=== PATIENT | female | born 1960 | race Caucasian/White ===

== ENCOUNTER 2018-06-25 08:44 | Outpatient (CLI) | payer MEDICARE, MEDICAID, SELFPAY ==
[2018-06-25 09:18] LABS: Abs Immature Grans 0.02 k/cumm (0.0-0.09); Absolute Basophil Count 0.03 k/cumm (0.0-0.2); Absolute Eosinophil Count 0.44 k/cumm (0.0-0.7); Absolute Lymphocyte Count 2.03 k/cumm (1.2-3.4); Absolute Monocyte Count 0.55 k/cumm (0.11-0.7); Absolute Neutrophil Count 5.65 k/cumm (1.2-6.7); Basophils % 0.3; HCT 39.5 % (36.0-46.0); HGB 12.7 g/dL (12.0-15.5); Immature Grans % 0.2; Lymphocytes % 23.3; Mean Corp. HGB Concentration 32.2 g/dL (32.0-36.0); Mean Corpuscular Hemoglobin 25.2 pg (27.0-33.0); Mean Corpuscular Volume 78.4 fL (80-95); Mean Platelet Volume 9.4 fL (8.0-11.0); Monocytes % 6.3; Neutrophils % 64.9; Platelet Count 409 x1000/uL (130-400); RBC 5.04 m/cumm (4.00-5.20); RBC Distribution Width 21.8 % (11.7-14.6); White Blood Cell Count 8.72 k/cumm (4.4-10.8)
[2018-06-25 09:40] LABS: Anisocytosis 2+; Diff Comment RBC Morph Reviewed; Hypochromasia 1+; Microcytosis 1+
[2018-06-25 10:45] LABS: Iron 73 ug/dL (50-175); Total Iron Binding Capacity 334 ug/dL (250-450); Transferrin Sat 22 % (15-50)
[2018-06-25 10:55] LABS: Anion Gap 7.9 mmol/L (3-11); BUN 24 mg/dL (7-18); CO2 28.1 mmol/L (21.0-32.0); CREATININE 1.11 mg/dL (0.55-1.02); Calcium 9.4 mg/dL (8.5-10.1); Chloride 102 mmol/L (98-107); Estimated GFR 50.49 (mL/min/1.73m2); Ferritin 47 ng/mL (8-388); Glucose 125 mg/dL (70-100); Potassium 4.4 mmol/L (3.5-5.1); Sodium 138 mmol/L (136-145)
== END 2018-06-25 09:04 ==
PROVIDERS: PCP Nurse Practitioner Family; Visit Provider Nurse Practitioner Family
DX: I10 Essential (primary) hypertension (principal); D50.9 Iron deficiency anemia, unspecified
CPT/HCPCS: 36415; 80048; 82728; 83540; 83550; 85025

== ENCOUNTER 2018-09-28 14:31 | Outpatient (CLI) | payer MEDICARE, MEDICAID, SELFPAY ==
[2018-09-28 14:56] LABS: Abs Immature Grans 0.02 k/cumm (0.0-0.09); Absolute Basophil Count 0.03 k/cumm (0.0-0.2); Absolute Eosinophil Count 0.18 k/cumm (0.0-0.7); Absolute Lymphocyte Count 2.28 k/cumm (1.2-3.4); Absolute Monocyte Count 0.64 k/cumm (0.11-0.7); Absolute Neutrophil Count 5.98 k/cumm (1.2-6.7); Basophils % 0.3; HCT 38.4 % (36.0-46.0); HGB 12.5 g/dL (12.0-15.5); Immature Grans % 0.2; Mean Corp. HGB Concentration 32.6 g/dL (32.0-36.0); Mean Corpuscular Hemoglobin 27.1 pg (27.0-33.0); Mean Corpuscular Volume 83.3 fL (80-95); Mean Platelet Volume 8.8 fL (8.0-11.0); Neutrophils % 65.5; Platelet Count 399 x1000/uL (130-400); RBC 4.61 m/cumm (4.00-5.20); White Blood Cell Count 9.13 k/cumm (4.4-10.8)
== END 2018-09-28 14:51 ==
PROVIDERS: PCP Nurse Practitioner Family; Visit Provider Nurse Practitioner Family
DX: D50.8 Other iron deficiency anemias (principal)
CPT/HCPCS: 36415; 85025

== ENCOUNTER 2019-07-14 02:11 | Outpatient (CLI) | payer MEDICARE, MEDICAID, SELFPAY ==
[2019-07-14 07:38] LABS: HCT 37.2 % (36.0-46.0); HGB 12.1 g/dL (12.0-15.5); Mean Corp. HGB Concentration 32.5 g/dL (32.0-36.0); Mean Corpuscular Hemoglobin 26.5 pg (27.0-33.0); Mean Corpuscular Volume 81.6 fL (80-95); Mean Platelet Volume 8.8 fL (8.0-11.0); Platelet Count 397 x1000/uL (130-400); RBC 4.56 m/cumm (4.00-5.20); RBC Distribution Width 15.1 % (11.7-14.6); White Blood Cell Count 8.24 k/cumm (4.4-10.8)
[2019-07-14 08:14] LABS: Anion Gap 8.4 mmol/L (3-11); BUN 23 mg/dL (7-18); CO2 26.6 mmol/L (21.0-32.0); Calcium 8.9 mg/dL (8.5-10.1); Chloride 105 mmol/L (98-107); Glucose 114 mg/dL (70-100); Potassium 4.5 mmol/L (3.5-5.1); Sodium 140 mmol/L (136-145)
[2019-07-14 09:14] LABS: Hemoglobin A1C 6.2 % (4.5-6.2)
== END 2019-07-14 02:31 ==
PROVIDERS: PCP Nurse Practitioner Family; Visit Provider Nurse Practitioner Family
DX: I10 Essential (primary) hypertension (principal); R73.01 Impaired fasting glucose; Z86.2 Personal history of diseases of the blood and blood-forming organs and certain disorders involving the immune mechanism
CPT/HCPCS: 36415; 80048; 85027; 83036

== ENCOUNTER 2019-08-31 17:53 | Outpatient (REF) | payer MEDICARE, MEDICAID, SELFPAY ==
--- NOTE | 2019-08-31 14:20 | PAPFT_PTH ---
PATIENT: Sandra Diaz LOC: [facility] U#:[id number] AGE/SX: 59/F ROOM: RE08/31/[address]: Carloz Cho MD : 1960 BED: DIS: 08/31/2019 SPEC #: [id number] RECD: 08/31/19 18:09 STATUS: EMILY REQ #: [id number] LILIA: 08/31/19 14:[address]: Carloz Cho DEPT: [facility] Cytology RECD BY: Misti Vasquez ENTERED: 08/31/19 18:10 SP TYPE: PAPFT OTHR DR: Cathy Daniels APRN Tissues: 1 - CX/ENDOCX FOR PAP SMEARS Procedures: PAP THIN PREP/UVM Screening HPV DNA PROBE Comments: [id number]
== END 2019-08-31 18:13 ==
LOC: LBN 17:53
PROVIDERS: PCP Nurse Practitioner Family; Visit Provider Obstetrics & Gynecology
DX: Z12.4 Encounter for screening for malignant neoplasm of cervix (principal)
CPT/HCPCS: 88142; 87624

== ENCOUNTER 2019-09-08 09:58 | Outpatient (CLI) | payer MEDICARE, MEDICAID, SELFPAY | END 2019-09-08 10:18 | PROVIDERS: PCP Nurse Practitioner Family; Visit Provider Obstetrics & Gynecology | DX: N81.3 Complete uterovaginal prolapse (principal); Z01.812 Encounter for preprocedural laboratory examination | CPT/HCPCS: 36415; 80053; 86850; 86900; 86901; 85025 ==

== ENCOUNTER 2019-09-10 01:50 | Outpatient (CLI) | payer MEDICARE, MEDICAID, SELFPAY ==
--- NOTE | 2019-09-10 09:36 | DI.US_ITS ---
EXAM: US RENAL CLINICAL HISTORY: Preoperative evaluation. N87.442 HX URINARY CALCULI TECHNIQUE: Ultrasound performed using standard protocol. COMPARISON: No prior studies for comparison FINDINGS: Renal ultrasound was performed according to the usual protocol. No prior studies available for avis christopher. There is moderate bilateral hydronephrosis. There is an apparent left midpole calculus measu ring about 11 millimeters in diameter. No other intrarenal calcification seen. The bladder is incom pletely filled and cannot be adequately evaluated. Moderate bilateral hydronephrosis. Left renal mi dpole to lower pole nonobstructing calculus identified.
== END 2019-09-10 02:10 ==
PROVIDERS: PCP Nurse Practitioner Family; Visit Provider Obstetrics & Gynecology
DX: N81.3 Complete uterovaginal prolapse (principal); Z87.442 Personal history of urinary calculi; N13.39 Other hydronephrosis; N20.0 Calculus of kidney
CPT/HCPCS: 76770

== ENCOUNTER 2019-09-15 17:26 | Observation (INO) | payer MEDICARE, MEDICAID, SELFPAY ==
[2019-09-08 11:00] VITALS: BP 150/96; PULSE 108; RESP 18; TEMP 37.1; O2SAT 95
[2019-09-08 11:08] VITALS: BP 150/96; PULSE 108; RESP 18; TEMP 37.1; O2SAT 95
[2019-09-15] VITALS (12 sets, daily range): BP systolic 56–151; BP diastolic 27–107; PULSE 77–103; RESP 17–20; TEMP 36.1–36.6; O2SAT 92–97
[2019-09-15] MEDS: Lactated Ringers 1,000 ML 100 ML IV ×4 (11:05→19:09)
[2019-09-15] MEDS: ceFAZolin 2 GM/50 ML BAG IVPB (13:29)
--- NOTE | 2019-09-15 14:45 | UTER_PTH ---
PATIENT: Sandra Diaz LOC: [id number]#:[id number] AGE/SX: 59/F ROOM: 218 RE09/15/[address]: Carloz Cho MD : 1960 BED: A DIS: 09/16/2019 SPEC #: [id number] RECD: 09/15/19 17:57 STATUS: EMILY REQ #: [id number] LILIA: 09/15/19 14:[address]: Carloz Cho DEPT: Surgical Specimen RECD BY: Misti Vasquez ENTERED: 09/15/19 17:58 SP TYPE: UTER OTHR DR: Cathy Daniels APRN Tissues: 1 - UTERUS W OR W/O OVARIES(NOT TUMOR/PROLAPSE) Procedures: GROSS AND MICRO LEVEL 4 Comments: [id number]
[2019-09-15] MEDS: Normal Saline 20 ML VIAL (15:50)
[2019-09-15] MEDS: Vasopressin 20 UNITS/ML VIAL (15:50)
--- NOTE | 2019-09-15 19:04 | ROE_ITS ---
Date of service: 09/15/19 Time of Service: 19:04 Operative Note Operative Note DATE OF PROCEDURE: 09/15/19 PRE-OP DIAGNOSIS: Complete procidentia POST-OP DIAGNOSIS: same Same PROCEDURE: 1. Total vaginal hysterectomy with bilateral salpingo-oophorectomy 2. Enterocele repair with a modified Carreno's culdoplasty 3. Left uterosacral ligament suspension 4. Posterior colporrhaphy 5. Postoperative cystoscopy SURGEON: Carloz Cho ASSISTING SURGEON: Arlin Lucero EMPLOYMENT APPEALS EXAMINER: Daisy Hernandes ANESTHESIA: GETA ESTIMATED BLOOD LOSS: 350 PATHOLOGY: other (1. Uterus, tubes and ovaries) COMPLICATIONS: None Patient was transported to: PACU Patient's condition: stable Findings: 1. Complete procidentia 2. Normal-appearing uterus tubes and ovaries 3. Postoperative cystoscopy showed numerous bladder diverticula but otherwise normal. Procedure Description: The patient was taken to the operating room and after adequate general anesthesia was obtained the patient was placed in lithotomy position. The patient was prepped and draped in usual sterile manner. A Saavedra catheter was placed in the bladder draining clear urine. As mentioned above complete procidentia was noted. Vaginal mucosa surrounding the cervix was infiltrated with vasopressin solution. A circumferential incision around the cervix was made with a #10 scalpel. Blunt and sharp dissection was used to develop the anterior and posterior planes. The vaginal mucosa was thick and inf lamed. Cul-de-sac was identified and entered sharply with Pena scissors. A right ankle retractor was used to reflect the rectum posteriorly. The uterosacral ligaments were crossclamped bilaterally with Zeppelin clamps, transected with Pena scissors, and suture ligated with a Sriram stitch of 0 Vicryl. I did have some difficulty identifying the anterior cul-de-sac initially but was able to enter the anterior cul-de-sac safely once the uterosacral ligaments were released. The bladder was reflected anteriorly with a right angle retractor as well. The uterine arteries were crossclamped bilat erally with Zeppelin clamps, transected with Pena scissors and suture-ligated with a Lina stitch of 0 Vicryl. Two additional pedicles completed dissection to the level of the utero-ovarian ligament. The uterus was removed from the abdomen. Each pedicle was suture-ligated with a transfixed suture of 0 Vicryl. The right tube and ovary were identified. The infundibulopelvic ligament was crossclamped with a Zeppelin clamp and transected with Pena scissors. It was then suture-ligated with a transfix suture of 0 Vicryl. A similar procedure was carried out on the opposite side. It was a very large enterocele defect. The suture tags on the uterosacral ligaments were held and used as a guide post. The enterocele sac with a portion of vaginal mucosa was excised. A modified Carreno's culdoplasty incorporating remnants of the uterosacral ligaments with the posterior peritoneum was used to close the defect. A V-shaped section of vaginal mucosa had been excised and closed with interrupted sutures of 0 Vicryl in a through and through fashion. Excellent hemostasis was noted. The suture tags which had been held on the uterosacral ligaments were incorporated into the vaginal angles with use of a free needle. The median defect in the vaginal cuff was closed with interrupted vertical mattress sutures of 0 Vicryl. The vaginal cuff was reduced caudally. Attention was then turned to the rectocele defect. The mucosa at the introitus was grasped with 2 Allis forceps. A V-shaped incision was made with a #10 scalpel over the perineal body. Dissection was carried in the midline along the posterior vaginal mucosa with Metzenbaum scissors. This was taken to the level of the enterocele defect. The vaginal mucosa was dissected laterally with both blunt and sharp dissection freeing it from the underlying rectocele defect. Dissection was carried to the ischio rectal fossa on the left side and the ischial spine was identified. The supraspinous ligament was also identified. With the use of a Capio needle petroleum transport driver two sutures of 0 Vicryl were placed approximately 1 cm medial from the ischial spine into the sacrospinous ligament. A point high on the vaginal mucosa near the vaginal cuff was identified and with the use of a free needle the sutures were passed through and through the vaginal mucosa and with a roshni stitch the vaginal apex was elevated. Attention was then turned to the right sacrospinous ligament. On this side it was very difficult to identify the point of the ischial spine despite adequate dissection into the ischio rectal fossa. The sacral spinous ligament could not be positively identified on the side and the decision was made to proceed only with the unilateral left-sided sacrospinous ligament fixation. The rectocele defect was identified and was reduced initially with a pursestring suture of 2-0 Vicryl. The endopelvic fascia was identified and the defect closed with interrupted sutures of 0 Vicryl. The vaginal mucosa was trimmed and closed with interrupted sutures of 0 Vicryl. The bulbocavernosus muscles were reapproximated in the midline with a deep stitch of 0 Vicryl. Excellent hemostasis was noted. The Saavedra catheter was removed. The 30 degree 5 mm cystoscope with normal saline distention media was advanced through the urethra. A 5 mL's of indigocarmine was given intravenously. The patient was noted to have some degre e of renal insufficiency at baseline. The bladder had a significant amount of debris with cloudy urine. The bladder wall was thoroughly inspected and there was no evidence of trauma. There was efflux of urine from both UOs but no strong stream of indigocarmine. This did take some time to present and urine was noted to be blue-colored in recovery. Numerous bladder diverticuli were noted. The procedure was concluded at this point. Vaginal packing soaked with Premarin was placed in the vagina. Sponge, lap, needle and instrument counts were correct at the conclusion of the procedure. The patient was transferred to PACU in stable condition.
--- NOTE | 2019-09-15 19:25 | NUR.NOTE ---
Nursing Note: At 108 hrs., pt brought to RM 218, post op total vaginal hysterectomy. Alert and oriented x 3. , Denied of post op pain. Saavedra output received in blue colored due to indigo camine used in surgery. No signs of bleeding noted. Pt having dinner at this time. Vital signs monitored. Call lights within reach.
[2019-09-15] MEDS: ACETAMINOPHEN 1,000 MG/100 ML BTL 400 MG (20:00)
[2019-09-15] MEDS: Docusate Sodium 100 MG CAP PO (20:42)
[2019-09-16 00:04] VITALS: BP 93/63; PULSE 91; RESP 17; TEMP 37; O2SAT 93
[2019-09-16 04:00] VITALS: BP 99/59; PULSE 95; RESP 20; TEMP 37; O2SAT 93
[2019-09-16] MEDS: Lactated Ringers 1,000 ML 100 ML IV (04:21)
[2019-09-16 07:05] LABS: Abs Immature Grans 0.03 k/cumm (0.0-0.09); Absolute Neutrophil Count 12.61 k/cumm (1.2-6.7); Basophils % 0.1; HCT 27.6 % (36.0-46.0); HGB 8.7 g/dL (12.0-15.5); Immature Grans % 0.2; Mean Corp. HGB Concentration 31.5 g/dL (32.0-36.0); Mean Corpuscular Hemoglobin 25.7 pg (27.0-33.0); Mean Corpuscular Volume 81.7 fL (80-95); Mean Platelet Volume 8.9 fL (8.0-11.0); Monocytes % 6.9; Neutrophils % 81.8; Platelet Count 425 x1000/uL (130-400); RBC 3.38 m/cumm (4.00-5.20); RBC Distribution Width 14.9 % (11.7-14.6); White Blood Cell Count 15.42 k/cumm (4.4-10.8)
[2019-09-16 07:21] LABS: Absolute Basophil Count 0.02 k/cumm (0.0-0.2); Absolute Monocyte Count 1.06 k/cumm (0.11-0.7)
[2019-09-16 07:22] LABS: ALT 13 U/L (14-59); AST 9 U/L (15-37); Albumin 2.5 g/dL (3.4-5.0); Alkaline Phosphatase 42 U/L (46-116); BUN 21 mg/dL (7-18); Bilirubin, Total 0.1 mg/dL (0.2-1.0); CREATININE 0.99 mg/dL (0.55-1.02); Calcium 8.9 mg/dL (8.5-10.1); Chloride 105 mmol/L (98-107); Estimated GFR 57.41 (mL/min/1.73m2); Glucose 138 mg/dL (74-106); Potassium 3.9 mmol/L (3.5-5.1); Sodium 140 mmol/L (136-145); Total Protein 5.9 g/dL (6.4-8.2)
[2019-09-16 07:33] VITALS: BP 107/65; PULSE 99; RESP 17; TEMP 37.2; O2SAT 95
[2019-09-16 07:37] LABS: Diff Comment RBC Morph Reviewed; Hypochromasia 1+; Polychromasia Present
[2019-09-16] MEDS: DULoxetine 20 MG CAP 40 MG PO (08:46)
[2019-09-16] MEDS: Docusate Sodium 100 MG CAP PO (08:46)
[2019-09-16 11:18] VITALS: BP 104/58; PULSE 111; RESP 17; TEMP 36.6; O2SAT 94
== END 2019-09-16 14:32 | disposition home or self-care (01) ==
LOC: MS 18:24
PROVIDERS: Admitting Provider Obstetrics & Gynecology; PCP Nurse Practitioner Family; Visit Provider Obstetrics & Gynecology
PROC: 0UT97ZZ Resection of Uterus, Via Natural or Artificial Opening (ICD-10-PCS; CPT 58260; principal; 2019-09-15 12:00)
PROC: 0UT97ZZ Resection of Uterus, Via Natural or Artificial Opening (ICD-10-PCS; CPT 57260; 2019-09-15 12:00)
DX: N81.3 Complete uterovaginal prolapse (principal); N32.3 Diverticulum of bladder; N84.0 Polyp of corpus uteri; N80.0 Endometriosis of uterus; N72 Inflammatory disease of cervix uteri; K21.9 Gastro-esophageal reflux disease without esophagitis
CPT/HCPCS: 58263; 57250; 36415; 80053; 88305; 85025; 88307; G0378; J0131; J0690; J1100; J2250; J2405; J3010; J3475

== ENCOUNTER 2019-09-30 11:20 | Emergency (ER) | payer MEDICARE, MEDICAID, SELFPAY ==
[2019-09-30 11:29] VITALS: BP 145/89; PULSE 97; RESP 18; TEMP 36.1; O2SAT 97
--- NOTE | 2019-09-30 11:45 | DI.RAD_ITS ---
EXAM: XR ANKLE LT COMPLETE CLINICAL HISTORY: Anterior lateral ankle pain/foot pain TECHNIQUE: COMPARISON: XR FOOT LT COMPLETE from 09/30/2019 FINDINGS: Three views of the ankle and three views of the foot were obtained. The ankle mortise is well mainta ined. There is soft tissue swelling of the ankle. There is cortical irregularity of the lateral asp ect of the calcaneus, possibility of impaction or avulsion fracture is raised. Clinical correlation requested. Otherwise no acute fracture is seen. There are degenerative changes involving the joints of the foot and ankle. IMPRESSION: Question lateral calcaneal impaction and/or avulsion injury. Please correlate clinically. Additiona l evaluation with CT could be obtained if appropriate.
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
== END 2019-09-30 12:20 | disposition home or self-care (01) ==
PROVIDERS: Emergency Provider Physician Assistant; PCP Nurse Practitioner Family
DX: S93.402A Sprain of unspecified ligament of left ankle, initial encounter (principal); X50.9XXA Other and unspecified overexertion or strenuous movements or postures, initial encounter; W10.8XXA Fall (on) (from) other stairs and steps, initial encounter; I10 Essential (primary) hypertension
CPT/HCPCS: 29515; 99284; 73610; 73630; 99283; L1902

== ENCOUNTER 2019-11-17 02:11 | Outpatient (CLI) | payer MEDICARE, MEDICAID, SELFPAY ==
--- NOTE | 2019-11-17 11:47 | DI.MAMMO_ITS ---
EXAM: MG MAMMO SCREENING CLINICAL HISTORY: SCREENING. TECHNIQUE: Bilateral full field digital CC and MLO mammographic images were obtained with 3D tomosyn thesis and utilizing computer aided detection (CAD). COMPARISON: Available for comparison. FINDINGS: Masses/Architectural Distortion: There is an asymmetric density in the upper central left breast seen on the mediolateral oblique view. Microcalcifications: No suspicious pleomorphic-type are seen. Skin Thickening/Nipple Retraction: None. IMPRESSION: 1. Asymmetric density in the upper central left breast on the mediolateral oblique view. 2. Spot compression views requested for further evaluation. Ultrasound may be indicated at that time . BI-RADS Cat 0 - Assessment Incomplete: Need additional imaging evaluation Breast Density - Category B - Scattered areas of fibroglandular density A negative radiographic report should not delay biopsy if a dominant or clinically suspicious mass is present. Up to ten percent of cancers are not identified on mammography. A negative report may reinforce clinical impression. Adenosis and dense breasts may obscure an underlying neoplasm. False positive reports average 6 to 10%. Patient will receive a letter notifying them of these results.
== END 2019-11-17 02:31 ==
PROVIDERS: PCP Nurse Practitioner Family; Visit Provider Nurse Practitioner Family
DX: Z12.31 Encounter for screening mammogram for malignant neoplasm of breast (principal); R92.8 Other abnormal and inconclusive findings on diagnostic imaging of breast
CPT/HCPCS: 77063; 77067

== ENCOUNTER 2019-11-22 01:10 | Outpatient (CLI) | payer MEDICARE, MEDICAID, SELFPAY ==
--- NOTE | 2019-11-22 14:40 | DI.MAMMO_ITS ---
EXAM: MG MAMMO SCREEN CALL BACK UNI MG MAMMO SCREEN CALL BACK UNI CLINICAL HISTORY: F/U MAMMO, ASYMMETRIC DENSITY UPPER OUTER LT BREAST TECHNIQUE: Spot-compression MLO view with tomography of the central portion the left breast was per formed. COMPARISON: 2012 and 2016. FINDINGS: The exam of 17 November 2019 question a central asymmetry on the MLO view of the left breast. No per sistent abnormality is seen on the additional view performed. The findings are consistent with overl gregory fibroglandular tissue. IMPRESSION: BI-RADS category 1, negative. Yearly screening mammography is recommended.
== END 2019-11-22 01:30 ==
PROVIDERS: PCP Nurse Practitioner Family; Visit Provider Nurse Practitioner Family
DX: Z12.31 Encounter for screening mammogram for malignant neoplasm of breast (principal); R92.8 Other abnormal and inconclusive findings on diagnostic imaging of breast; N64.59 Other signs and symptoms in breast
CPT/HCPCS: 77063; 77067

== ENCOUNTER 2021-06-28 02:56 | Outpatient (CLI) | payer MEDICARE, MEDICAID, SELFPAY ==
[2021-06-28 09:56] LABS: Abs Immature Grans 0.02 10^3/uL (0.0-0.06); Absolute Basophil Count 0.03 10^3/uL (0.0-0.2); Absolute Eosinophil Count 0.23 10^3/uL (0.0-0.7); Absolute Lymphocyte Count 1.92 10^3/uL (1.2-3.4); Absolute Monocyte Count 0.55 10^3/uL (0.1-0.8); Absolute Neutrophil Count 5.01 10^3/uL (1.2-6.7); Basophils % 0.4; HCT 37.9 % (36.0-46.0); HGB 11.4 g/dL (11.2-15.7); Immature Grans % 0.3; Lymphocytes % 24.7; MCH 24.9 pg (27.0-33.0); MCHC 30.1 % (32.0-36.0); MCV 82.8 fL (80-95); MPV 9.2 fL (8.0-11.0); Monocytes % 7.1; Neutrophils % 64.5; Nucleated RBC 0 %; Platelet Count 334 10^3/uL (130-400); RBC 4.58 10^6/uL (3.93-5.22); RDW 15.5 % (11.7-14.6); WBC 7.76 10^3/uL (4.4-10.8)
[2021-06-28 10:49] LABS: ALT 25 U/L (14-59); AST 8 U/L (15-37); Albumin 3.7 g/dL (3.4-5.0); Alkaline Phosphatase 60 U/L (46-116); Anion Gap 9.3 mmol/L (3-11); BUN 21 mg/dL (7-18); Bilirubin, Total 0.4 mg/dL (0.2-1.0); CO2 29.7 mmol/L (21.0-32.0); CREATININE 1.1 mg/dL (0.55-1.02); Calcium 9.3 mg/dL (8.5-10.1); Chloride 106 mmol/L (98-107); Glucose 98 mg/dL (74-106); Potassium 4.2 mmol/L (3.5-5.1); Sodium 145 mmol/L (136-145); Total Protein 7.2 g/dL (6.4-8.2)
[2021-06-29 12:14] LABS: Hepatitis C Ab w Rflx HCV PCR Negative (Negative)
== END 2021-06-28 02:57 | disposition home or self-care (01) ==
LOC: LBO 02:56
PROVIDERS: PCP Nurse Practitioner Family; Visit Provider Nurse Practitioner Family
DX: I10 Essential (primary) hypertension (principal); Z11.59 Encounter for screening for other viral diseases
CPT/HCPCS: 36415; 80053; 86803; 85025

== ENCOUNTER 2021-12-08 10:38 | Emergency (ER) | payer MEDICARE, MEDICAID, SELFPAY ==
[2021-12-08 10:43] VITALS: BP 175/95; PULSE 111; RESP 14; TEMP 36.3; O2SAT 97
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
[2021-12-08 12:08] LABS: Abs Immature Grans 0.02 10^3/uL (0.0-0.06); Absolute Basophil Count 0.04 10^3/uL (0.0-0.2); Absolute Eosinophil Count 0.15 10^3/uL (0.0-0.7); Absolute Monocyte Count 0.62 10^3/uL (0.1-0.8); Absolute Neutrophil Count 5.82 10^3/uL (1.2-6.7); Basophils % 0.5; Eosinophils % 1.8; HCT 36.7 % (36.0-46.0); HGB 11.6 g/dL (11.2-15.7); Immature Grans % 0.2; Lymphocytes % 21.3; MCH 25.9 pg (27.0-33.0); MCHC 31.6 % (32.0-36.0); MCV 81.9 fL (80-95); MPV 8.9 fL (8.0-11.0); Monocytes % 7.3; Neutrophils % 68.9; Nucleated RBC 0 %; Platelet Count 333 10^3/uL (130-400); RBC 4.48 10^6/uL (3.93-5.22); RDW 14.4 % (11.7-14.6); RDW-SD 42.6 fL; WBC 8.45 10^3/uL (4.4-10.8)
[2021-12-08 12:28] LABS: ALT 20 U/L (14-59); AST 12 U/L (15-37); Albumin 3.9 g/dL (3.4-5.0); Alkaline Phosphatase 58 U/L (46-116); BUN 29 mg/dL (7-18); Bilirubin, Total 0.3 mg/dL (0.2-1.0); CREATININE 1.1 mg/dL (0.55-1.02); Calcium 9.3 mg/dL (8.5-10.1); Chloride 103 mmol/L (98-107); Glucose 109 mg/dL (74-106); Potassium 4.3 mmol/L (3.5-5.1); Sodium 139 mmol/L (136-145)
--- NOTE | 2021-12-08 12:45 | DI.CT_ITS ---
Exam(s) CT CHEST PE CTA EXAM: CT CHEST PE CTA CLINICAL HISTORY: elevated dimer, leg pain, tachycardia. TECHNIQUE: Imaging Protocol: Axial CT angiography was performed with multi-slice acquisition and mu lti-planar and/or 3D reconstructions. CONTRAST MATERIAL: Intravenous: Omnipaque 350 Contrast volume:100 mL COMPARISON: CT CHEST ABD PELVIS WITH CONTRAST from 10/03/2013 CT CTA NECK/CAROTID from 06/30/2017 FINDINGS: The examination is limited due to patient motion artifact. Tracheobronchial tree: Patent where visualized. Pulmonary parenchyma: No consolidation or dominant measurable mass. No architectural distortion. Pulmonary Arteries: No central pulmonary embolus is identified. Peripheral pulmonary artery evaluati on is limited due to patient motion artifact and poor inspiration. Mediastinum and Farida: No dominant adenopathy or fluid collection. The esophagus is unremarkable. Th ere is a moderate size hiatal hernia. There is asymmetric thickening of the stomach wall in the hiat al hernia. Visualized thyroid gland: Unremarkable. Pleura: No effusion or pneumothorax. Heart: The heart is not dilated. No pericardial effusion. Aorta: Thoracic aorta non-dilated. No evidence of dissection. Atherosclerosis. Upper abdomen: Unchanged left adrenal nodularity. Soft tissues: Unremarkable. Bones: Within normal limits for the patient's age.Old healed bilateral rib fractures. IMPRESSION: 1. No evidence of pulmonary embolism, thoracic aortic dissection or aneurysm. 2. Hiatal hernia with asymmetric thickening of the wall of the stomach in the hernia. This may be du e to underdistention. Infiltrating mass or inflammatory/infectious process cannot be excluded. Plea se correlate clinically. This may be further evaluated with an upper GI or endoscopy. RADIATION DOSE DELIVERED: 310.34mGy.cm Total DLP DATA REPOSITORY: All CT scans at this facility are submitted to the National Radiology Data Registry (NRDR) Dose Index Registry (DIR) with the [employer] (ACR). RADIATION OPTIMIZATION: All CT scans at this facility use at least one of these dose optimization te chniques: automated exposure control; mA and/or kV adjustment per patient size (includes targeted exa ms where dose is matched to clinical indication); or iterative reconstruction.
[2021-12-08 12:46] LABS: D-Dimer 2165 ng/mlFEU (<500)
[2021-12-08] MEDS: Omnipaque 350 MG/ML 100 ML BTL IJ (14:36)
[2021-12-08] MEDS: Normal Saline Flush 10 ML SYR IVP (14:37)
[2021-12-08 14:44] VITALS: BP 145/79; PULSE 124; RESP 27; TEMP 36.1; O2SAT 97
--- NOTE | 2021-12-08 15:16 | DI.VRAD_ITS ---
PROCEDURE INFORMATION: Exam: CTA Chest With Contrast Exam date and time: 12/08/2021 12:50 PM Age: 61 years old Clinical indication: Other: Elevated d-dimer, leg pain, tachycardia TECHNIQUE: Imaging protocol: Computed tomographic angiography of the chest with contrast. 3D rendering (Not supervised by radiologist): MIP and/or 3D reconstructed images were created by the technologist. Radiation optimization: All CT scans at this facility use at least one of these dose optimization techniques: automated exposure control; mA and/or kV adjustment per patient size (includes targeted exams where dose is matched to clinical indication); or iterative reconstruction. Contrast material: OMNIPAQUE 350; Contrast volume: 100 ml; Contrast route: INTRAVENOUS (IV); COMPARISON: CT CHEST PE CTA 10/09/2015 9:38 AM FINDINGS: Pulmonary arteries: Normal. No pulmonary emboli. Aorta: The aorta and major branches demonstrate mild atherosclerotic calcification. No fusiform aortic aneurysm. Motion artifact at the aortic root limits evaluation for dissection. No convincing evidence of dissection. Lungs: Minimal stable linear peripheral scar right middle lobe (series 5, image 309). No focal area of consolidation. No discrete pulmonary nodule. Pleural spaces: Unremarkable. No pneumothorax. No pleural effusion. Heart: Unremarkable. No cardiomegaly. No pericardial effusion. Lymph nodes: Unremarkable. No enlarged lymph nodes. Adrenal glands: Prominence of the partially visualized left adrenal gland is unchanged since at least October 09, 2015. Stomach and bowel: Moderate sliding-type hiatal hernia.There is nonspecific gastric wall thickening including the herniated portion. This may be due to incomplete distension although gastritis or other infiltrating process cannot be excluded. Bones/joints: Unremarkable. No acute fracture. Soft tissues: Unremarkable. IMPRESSION: 1. No pulmonary emboli. 2. Were hiatal hernia with gastric wall thickening which is nonspecific and likely due to nondistention although gastritis or other infiltrating process cannot be excluded. 3. Prominence of the partially visualized left adrenal gland is unchanged since at least October 09, 2015. No further workup of this suggested. Dictated and Authenticated by: Ryan Schulz MD. Ordering:CON Chappell MD
[2021-12-08] MEDS: Apixaban 5 MG TAB 10 MG PO ×2 (15:42)
[2021-12-08 15:43] VITALS: PULSE 115; O2SAT 95
== END 2021-12-08 16:03 | disposition home or self-care (01) ==
PROVIDERS: Emergency Provider Physician Assistant; PCP Nurse Practitioner Family
DX: M79.662 Pain in left lower leg (principal); M79.89 Other specified soft tissue disorders; R00.0 Tachycardia, unspecified; R79.1 Abnormal coagulation profile
CPT/HCPCS: 36415; 71275; 80053; 99285; 85025; 85379; 99283; J3490

== ENCOUNTER 2021-12-10 09:23 | Emergency (ER) | payer MEDICARE, MEDICAID, SELFPAY ==
[2021-12-10 09:27] VITALS: BP 158/73; PULSE 99; RESP 16; TEMP 36.5; O2SAT 96
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
== END 2021-12-10 10:24 | disposition home or self-care (01) ==
PROVIDERS: Emergency Provider Physician Assistant; PCP Nurse Practitioner Family
DX: M79.605 Pain in left leg (principal)

== ENCOUNTER 2021-12-10 12:40 | Outpatient (CLI) | payer MEDICARE, MEDICAID, SELFPAY ==
--- NOTE | 2021-12-10 | DI.US_ITS ---
Exam(s) US LOWER EXTREMITY VENOUS LT EXAM: US LOWER EXTREMITY VENOUS LT CLINICAL HISTORY: SWELLING, PAIN LLE, M79.662. TECHNIQUE: Lower extremity venous ultrasound performed using grayscale, color-flow, and spectral Do ppler analysis. COMPARISON: No exams were available for comparison FINDINGS: The common femoral, femoral and popliteal veins demonstrate normal compressibility, augmentation, and color Doppler. The posterior tibial veins are patent. No saphenous vein thrombosis or other superfi cial venous thrombosis is seen. No hematoma or Ott's cyst is seen. IMPRESSION: Negative left lower extremity ultrasound. No evidence of DVT. DATA REPOSITORY:
== END 2021-12-10 13:00 ==
PROVIDERS: PCP Nurse Practitioner Family; Visit Provider Physician Assistant
DX: M79.662 Pain in left lower leg (principal); R22.42 Localized swelling, mass and lump, left lower limb
CPT/HCPCS: 93971

== ENCOUNTER → 2022-01-10 08:41 | Outpatient (BNVA) | payer MEDICARE, MEDICAID, SELFPAY | PROVIDERS: PCP Nurse Practitioner Family; Referring Provider Nurse Practitioner Family; Visit Provider Physical Therapy Assistant | DX: Z12.11 Encounter for screening for malignant neoplasm of colon (principal) ==

== ENCOUNTER 2022-01-16 00:55 | Outpatient (CLI) | payer MEDICARE, MEDICAID, SELFPAY ==
--- NOTE | 2022-01-16 11:47 | DI.MAMMO_ITS ---
Exam(s) MAMMO SCREENING EXAM: MAMMO SCREENING CLINICAL HISTORY: screening,Z12.39. TECHNIQUE: Bilateral full field digital CC and MLO mammographic images were obtained with 3D tomosyn thesis and utilizing computer aided detection (CAD). COMPARISON: Prior mammograms were reviewed, the most recent being November 2019. FINDINGS: There has been no significant change in the appearance and distribution of the fibroglandular tissue. There are no new spiculated masses nor malignant appearing microcalcification groups. Small nodule seen medially is unchanged and probably a skin mole. There is no significant architectural distortion nor skin thickening-retraction. IMPRESSION: No radiographic evidence of malignancy. Stable benign findings BI-RADS Category 2 - Benign Findings Breast Density - Category B - Scattered areas of fibroglandular density Breast density Category C or D implies that the patient has dense breast tissue. Dense breast tissue can make it harder to find cancer on a mammogram. Dense breast tissue is also associated with an incr eased risk of breast cancer. This information about the result of the mammogram report was provided to the patient to raise their awareness. Use this report when you speak with the patient about their risks for breast cancer, which includes their family history. At that time, you may recommend additional screening tests (Ultrasoun d or MRI) as these tests may add significant information. A negative radiographic report should not delay biopsy if a dominant or clinically suspicious mass is present. Up to ten percent of cancers are not identified on mammography. A negative report may reinforce clinical impression. Adenosis and dense breasts may obscure an underlying neoplasm. False positive reports average 6 to 10%. Patient will receive a letter notifying them of these results.
== END 2022-01-16 01:15 ==
PROVIDERS: PCP Nurse Practitioner Family; Visit Provider Nurse Practitioner Family
DX: Z12.31 Encounter for screening mammogram for malignant neoplasm of breast (principal)
CPT/HCPCS: 77063; 77067

== ENCOUNTER 2022-01-23 02:30 | Outpatient (CLI) | payer MEDICARE, MEDICAID, SELFPAY ==
[2022-01-23 12:51] LABS: Source Nasal/Nares
[2022-01-23 16:23] LABS: COVID-19 PCR Positive (Negative)
== END 2022-01-23 02:31 | disposition home or self-care (01) ==
LOC: LBO 02:30
PROVIDERS: PCP Nurse Practitioner Family; Visit Provider Surgery
DX: Z20.822 Contact with and (suspected) exposure to COVID-19 (principal); Z01.818 Encounter for other preprocedural examination
CPT/HCPCS: 87635; U0005

== ENCOUNTER 2022-03-29 06:08 | Day surgery (SDC) | payer MEDICARE, MEDICAID, SELFPAY ==
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
--- NOTE | 2022-03-28 23:27 | PDOC.DSDIS_ITS ---
Discharge Plan Disposition Patient Disposition: HOME Condition: Good Discharge Details Reason For Visit: colon scope Attending Provider: Lore Pandya Primary Care Provider: Cathy Daniels Home Meds and New Rx's Prescriptions: Continued lisinopril 40 mg tablet 40 mg PO DAILY Qty: 90 3RF omeprazole magnesium [Prilosec OTC] 20 mg tablet,delayed release (DR/EC) 20 mg PO DAILY cholecalciferol (vitamin D3) 1,000 UNIT tablet 1,000 unit PO DAILY Qty: 90 hydrochlorothiazide 12.5 mg tablet 12.5 mg PO DAILY Qty: 90 3RF Discontinued bisacodyl [Dulcolax (bisacodyl)] 5 mg tablet,delayed release (DR/EC) 5 mg PO ONCE Qty: 4 0RF Rx Instructions: Take according to provider's instructions for colonoscopy prep. polyethylene glycol 3350 17 gram/dose powder 17 g PO ONCE Qty: 238 0RF Rx Instructions: To be taken as directed by prescriber's office for colonoscopy prep. Discharge Instructions Additional Instructions: DSU Colonoscopy Post- Op Instructions Instructions for Everyone who is given Anesthesia: For your safety, please do the following for the next twenty-four (24) hours: *Do Not operate a motor vehicle (car, truck, motorcycle, etc.) *Do Not drink alcoholic beverages or use any recreational drugs for the first 24 hours or while taking pain medications. The medications in your body may have a reaction that can be dangerous. *Do Not make any important decisions or sign any important papers. Findings: Internal/external hemorrhoids/rectal prolaspse- mild Follow up: repeat C scope in 5 yrs time 1. No lifting over 20 pounds or strenuous activity for the first 24 hours after your procedure. After 24 hours there are no restrictions on your activity but you may feel fatigued for a few days. 2. After you arrive home you may have a light meal and return to your normal diet as you can tolerate it without feeling sick to your stomach. 3. You may have a bloated, gaseous feeling in your belly (abdomen) after a colonoscopy. Passing gas and belching will help. Walking or lying down on your left side with your knees flexed may relieve the discomfort. Call the office at [phone] (Office) or [phone] (Hospital) right away if you notice any of the following: a.Vomiting of blood or ?coffee ground stools?. b.Rectal bleeding 1Tbsp, blood clots or continuous bleeding. c.Severe belly (abdominal) pain. d.A hard distended belly (abdomen) and an inability to pass gas. 4. Please don?t expect to have a normal BM (bowel movement) for 2-3 days after your procedure. 5. If there are questions regarding the findings of your procedure, please contact your doctor 6. If you are unable to contact your doctor with a problem, contact the hospital at [phone]. 7. Continue all your regular medications unless directed otherwise. I understand the above instructions and have no questions. Signature of Patient or Adult Escort Name of Responsible Adult Escort Signature of Nurse Date/Time Activity:: see above Diet:: see above Discharge Orders Discharge Orders: Discharge Order (Routine); Ordered 03/28/22 Ordered By: Lore Pandya DS: Diagnosis Discharge Diagnosis (1) Serrated adenoma of colon: Status: Acute (2) CKD (chronic kidney disease): Status: Chronic (3) Mixed incontinence urge and stress: Status: Chronic (4) IFG (impaired fasting glucose): Status: Chronic (5) Essential hypertension: Status: Chronic (6) Bipolar disorder: Status: Chronic (7) Internal hemorrhoids without complication: Status: Acute (8) External hemorrhoid: Status: Acute (9) Incomplete rectal prolapse: Status: Acute
--- NOTE | 2022-03-28 23:28 | W.COLOREPORT ---
Colonoscopy Report Date of procedure: 03/29/22 Pre-op diagnosis general: serated adenoma-2018 Post-op diagnosis procedure note: other (I/E hemorrhoids & partial mucosal prolaspe) Surgeon: Lore Pandya Anesthesia Type: General:No Airway Estimated blood loss (mL): 1 Pathology: other Complications: None Disposition: same day Prep: Miralax/Dulcolax Procedure Description: After informed consent was obtained the patient was taken to the procedure room and placed in a left decubitous position. Monitors were applied and a time out was done. The patients name, date of , procedure, allergies to medications and metal in their body was reviewed. The patient was then sedated. Once sedated and comfortable a rectal exam was done. External exam shows moderate external hemorrhoids with no acute thrombosis. Internal exam revealed a normal sphincter tone and no palpable masses. The scope was then introduced and retrofelexed. Grade II internal hemorrhoids were identified. She also has an area of partial/incomplete completely mucosa herniation. This area was rather ulcerated and friable. It was biopsied. The scope was then advanced to the cecum without difficulty. The TI and appendiceal orifice were identified. The prep was BB PS 3 in all segments for total of 9. The scope was then slowly retracted over 8 minutes back into the rectum. There are no polyps/AVMs/diverticula visualized today. The scope was removed and the patient was woken up and taken back to Same day surgery in stable condition. The patient tolerated the procedure well and there were no immediate complications. Follow up: The patient should follow up in 5 years unless they develop changes in bowel habits or other new gastrointestinal complaints.
[2022-03-29 06:16] VITALS: BP 128/89; PULSE 89; RESP 20; TEMP 36.5; O2SAT 96
[2022-03-29] MEDS: Lactated Ringers 1,000 ML 80 ML IV (06:47)
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
[2022-03-29 07:07] VITALS: BMI 38.0
--- NOTE | 2022-03-29 07:55 | BOWEL_PTH ---
PATIENT: Sandra Diaz LOC: [facility] U#:[id number] AGE/SX: 61/F ROOM: RE03/29/[address]: Lore Pandya : 1960 BED: DIS: 03/29/2022 SPEC #: [id number] RECD: 03/29/22 11:45 STATUS: EMILY RE #: [id number] LILIA: 03/29/22 07:[address]: Lore Pandya DEPT: Surgical Specimen RECD BY: Misti Vasquez ENTERED: 03/29/22 11:46 SP TYPE: Bowel OTHR DR: Cathy Daniels APRN Tissues: 1 - BIOPSY BOWEL Procedures: GROSS AND MICRO LEVEL 4 Comments: [id number]
[2022-03-29] MEDS: Cellulose,Oxidized 4X8 1 PACKET MC (08:09)
[2022-03-29 08:15] VITALS: BP 90/58; PULSE 83; RESP 18; TEMP 36.4; O2SAT 95
--- NOTE | 2022-03-29 08:38 | W.ANESPOSTOP ---
Postoperative Evaluation Date, Time and Location Date Performed: 03/29/22 Time Performed: 08:38 Patient Location: Day Surgery Unit Vital Signs Most Recent Imported Vital Signs: Most Recent Vital Signs Temp Pulse Resp BP Pulse Ox 36.4 C L 83 18 90/58 L 95 03/29/22 08:15 03/29/22 08:15 03/29/22 08:15 03/29/22 08:15 03/29/22 08:15 Pain Score Most Recent Pain Score: Most Recent Pain Score Pain Level 0 03/29/22 08:15 Assessment Mental Status: Awake (Alert & Oriented to Patient Baseline) Airway and Respiratory Function: Patent airway with normal (patient baseline) respiratory exam Cardiovascular Function: Hemodynamically Stable Hydration Status: Adequately Hydrated Nausea & Vomiting: No Nausea or Vomiting Pain: Pt. Denies Any Pain Peripheral Nerve Block: Patient did not receive a nerve block
[2022-03-29 08:46] VITALS: BP 106/70; PULSE 79; RESP 16; TEMP 36.4
== END 2022-03-29 09:05 | disposition home or self-care (01) ==
PROVIDERS: PCP Nurse Practitioner Family; Visit Provider Surgery
PROC: 0DJD8ZZ Inspection of Lower Intestinal Tract, Via Natural or Artificial Opening Endoscopic (ICD-10-PCS; CPT 45378; principal; 2022-03-29 07:30)
DX: Z12.11 Encounter for screening for malignant neoplasm of colon (principal); Z86.010 Personal history of colon polyps; I12.9 Hypertensive chronic kidney disease with stage 1 through stage 4 chronic kidney disease, or unspecified chronic kidney disease; N18.30 Chronic kidney disease, stage 3 unspecified; R73.01 Impaired fasting glucose; F31.9 Bipolar disorder, unspecified; K64.8 Other hemorrhoids; K64.4 Residual hemorrhoidal skin tags; K62.2 Anal prolapse
CPT/HCPCS: G0105; 88305

== ENCOUNTER 2022-12-18 02:43 | Outpatient (CLI) | payer MEDICARE, MEDICAID, SELFPAY ==
[2022-12-18 13:02] LABS: CREATININE 0.8 mg/dL (0.55-1.02); Calcium 9.5 mg/dL (8.5-10.1); Calculated LDL 98 mg/dL (<100); Chloride 102 mmol/L (98-107); Cholesterol 157 mg/dL (<200); Estimated GFR 83.26 (mL/min/1.73m2); Glucose 98 mg/dL (74-106); HDL Cholesterol 48 mg/dL (40-60); Potassium 4.3 mmol/L (3.5-5.1); Sodium 139 mmol/L (136-145); Triglyceride 59 mg/dL (<150)
[2022-12-18 13:09] LABS: BUN 19 mg/dL (7-18)
== END 2022-12-18 02:44 | disposition home or self-care (01) ==
LOC: LOS 02:43
PROVIDERS: PCP Nurse Practitioner Family; Visit Provider Nurse Practitioner Family
DX: I10 Essential (primary) hypertension (principal); E78.5 Hyperlipidemia, unspecified; R73.01 Impaired fasting glucose
CPT/HCPCS: 36415; 80048; 80061

== ENCOUNTER → 2024-01-14 02:14 | Outpatient (CLI) | payer MEDICARE, MEDICAID, SELFPAY ==
--- NOTE | 2024-01-14 06:45 | DI.MAMMO_ITS ---
Exam(s) MAMMO SCREENING EXAM: MAMMO SCREENING CLINICAL HISTORY: screening,z12.39 TECHNIQUE: Bilateral full field digital CC and MLO mammographic images were obtained with 3D tomosyn thesis and utilizing computer aided detection (CAD). COMPARISON: Available for comparison. FINDINGS: Masses/Architectural Distortion: None seen. Microcalcifications: No suspicious pleomorphic-type are seen. Skin Thickening/Nipple Retraction: None. IMPRESSION: 1. No significant interval change with no specific features of malignancy noted. 2. Unless there is more urgent need, screening mammography is recommended, as per [employer] guidelines. BI-RADS Category 1 - Negative Breast Density - Category B - Scattered areas of fibroglandular density Breast density category C or D implies that the patient has dense breast tissue. Dense breast tissue is very common and is not abnormal but dense breast tissue can make it harder to find cancer on a ma mmogram. Also, dense breast tissue may increase their breast cancer risk. This information about the result of the mammogram report was provided to the patient to raise their awareness. Use this report when you speak with the patient about their risks for breast cancer, which includes their family hist ory. At that time, you may recommend for more screening tests (Ultrasound or MRI) as they might be us eful based on their risk. A negative radiographic report should not delay biopsy if a dominant or clinically suspicious mass is present. Up to ten percent of cancers are not identified on mammography. A negative report may reinforce clinical impression. Adenosis and dense breasts may obscure an underlying neoplasm. False positive reports average 6 to 10%. Patient will receive a letter notifying them of these results.
== END ==
PROVIDERS: PCP Family Medicine; Visit Provider Family Medicine
DX: Z12.31 Encounter for screening mammogram for malignant neoplasm of breast (principal)
CPT/HCPCS: 77063; 77067

== ENCOUNTER 2024-12-01 08:19 | Emergency (ER) | payer MEDICARE, MEDICAID, SELFPAY ==
[2024-12-01 08:42] VITALS: BP 165/106; PULSE 105; RESP 18; TEMP 36.5; O2SAT 95
--- NOTE | 2024-12-01 08:45 | DI.RAD_ITS ---
Exam(s) XR RIBS LT W PA LAT CHEST EXAM: XR RIBS LT W PA LAT CHEST CLINICAL HISTORY: left lower anterior rib injury, post fall 8-10 TECHNIQUE: 2D digital imaging was performed. Six images are obtained. COMPARISON: CR CHEST 2 VIEWS PA,LAT from 06/30/2017 FINDINGS: There is poor inspiration. MEDIASTINUM: Normal. HEART: Normal. PULMONARY VASCULATURE: Normal. LUNGS: Clear. PLEURAL SPACE: No pleural effusion or pneumothorax. BONE:Within normal limits for the patient's age. No acute spinal fractures are seen. LEFT RIBS: There is a nondisplaced fracture at the anterolateral aspect of the left 7th rib. OTHER FINDINGS:Normal. IMPRESSION: 1. No acute pulmonary findings. 2. Nondisplaced fracture of the anterolateral aspect of the left 7th rib. 3. No pneumothorax or pleural effusion. DATA REPOSITORY: RADIATION DOSE DELIVERED:
[2024-12-01] MEDS: Acetaminophen 325 MG TAB 650 MG PO (10:00)
[2024-12-01] MEDS: Lidocaine 5% Patch 1 PATCH TP ×2 (10:00→10:51)
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
== END 2024-12-01 11:05 | disposition home or self-care (01) ==
PROVIDERS: Emergency Provider Physician Assistant; PCP Family Medicine
DX: S22.32XA Fracture of one rib, left side, initial encounter for closed fracture (principal); I10 Essential (primary) hypertension; Z86.718 Personal history of other venous thrombosis and embolism; W01.0XXA Fall on same level from slipping, tripping and stumbling without subsequent striking against object, initial encounter
CPT/HCPCS: 99283; 71046; 71100

== ENCOUNTER 2025-02-01 01:23 | Outpatient (CLI) | payer MEDICARE, MEDICAID, SELFPAY ==
--- NOTE | 2025-02-01 06:15 | DI.RAD_ITS ---
Exam(s) XR KNEE RT 3V AP,LAT,NORBERTO EXAM: XR KNEE RT 3V AP,LAT,NORBERTO CLINICAL HISTORY: rt knee pain,m25.561. TECHNIQUE: 2D digital imaging was performed. Three images were obtained. AP, PA tunnel and lateral views were obtained. COMPARISON: CR XR KNEE 3 VIEW RIGHT from 09/23/2012 CR XR KNEE 2 VIEW LEFT, XR KNEE 2 VIEW RIGHT from 09/30/2013 FINDINGS: BONES: There are stable post operative changes of a right knee arthroplasty present. No fracture or dislocation. JOINTS: The orthopedic hardware is in good position. There is increased lucency seen at the anterior aspect of the interface of the distal femur and the prosthesis on the lateral view. Osteophytes are seen at the posterior patella. There is narrowing of the patellofemoral joint space. SOFT TISSUE: Dystrophic calcifications are seen in the soft tissues medially and laterally. IMPRESSION: Right knee replacement is again identified. There is now lucency at the anterior aspect of the inter face between the distal femur and the prosthesis on the lateral view. Loosening should be considered . DATA REPOSITORY: RADIATION DOSE DELIVERED:
== END 2025-02-01 01:43 ==
LOC: DI 01:23
PROVIDERS: PCP Family Medicine; Visit Provider Nurse Practitioner
DX: M25.561 Pain in right knee (principal); G89.29 Other chronic pain; Z96.651 Presence of right artificial knee joint
CPT/HCPCS: 73562

== ENCOUNTER 2025-03-21 13:02 | Outpatient (CLI) | payer MEDICARE, MEDICAID, SELFPAY ==
[2025-03-21 11:16] LABS: Abs Immature Grans 0.02 10^3/uL (0.0-0.06); Absolute Basophil Count 0.03 10^3/uL (0.0-0.2); Absolute Eosinophil Count 0.13 10^3/uL (0.0-0.7); Absolute Lymphocyte Count 1.62 10^3/uL (1.2-3.4); Absolute Monocyte Count 0.64 10^3/uL (0.1-0.8); Absolute Neutrophil Count 5.99 10^3/uL (1.2-6.7); Basophils % 0.4 %; Eosinophils % 1.5 %; HCT 39.5 % (36.0-46.0); HGB 12.2 g/dL (11.2-15.7); Immature Grans % 0.2 %; Lymphocytes % 19.2 %; MCH 24.5 pg (27.0-33.0); MCHC 30.9 % (32.0-36.0); MCV 80 fL (80-95); MPV 8.5 fL (8.0-11.0); Monocytes % 7.6 %; Neutrophils % 71.1 %; Platelet Count 329 10^3/uL (130-400); RBC 4.97 10^6/uL (3.93-5.22); RDW 16.9 % (11.7-14.6); RDW-SD 48.1 fL; WBC 8.43 10^3/uL (4.4-10.8)
[2025-03-21 11:18] LABS: ESR 27 mm/hr (0-30)
[2025-03-21 18:13] LABS: CRP, High Sensitivity 14.29 mg/L (See Note)
== END 2025-03-21 13:03 | disposition home or self-care (01) ==
LOC: LBO 13:04
PROVIDERS: PCP Family Medicine; Visit Provider Orthopaedic Surgery
DX: M25.561 Pain in right knee (principal); Z96.651 Presence of right artificial knee joint
CPT/HCPCS: 36415; 85652; 86141; 85025

== ENCOUNTER 2025-05-17 01:57 | Outpatient (CLI) | payer MEDICARE, MEDICAID, SELFPAY ==
--- NOTE | 2025-05-17 06:15 | DI.MRI_ITS ---
Exam(s) MR BRAIN WO EXAM: MR BRAIN WO CLINICAL HISTORY: R foot drop, positive Babinski on R,m21.371,r29.2 TECHNIQUE: Multiplanar multisequence MRI of the brain was performed. COMPARISON: MR MRI - BRAIN WO CONTRAST from 10/09/2016 FINDINGS: The examination is limited due to patient motion artifact. VENTRICLES AND EXTRA AXIAL SPACES: Normal in size and morphology for the patient's age. MIDLINE SHIFT: None. CEREBRAL PARENCHYMA: No focus of restricted diffusion to suggest acute infarct. No space-occupying lesion identified. There are a few areas of hyperintensity on the T2 weighted and FLAIR images in the white matter most consistent with chronic microvascular ischemic disease. HEMORRHAGE: None. BRAINSTEM/CEREBELLUM: Normal. CALVARIUM: Normal. VISUALIZED PARANASAL SINUSES/MASTOIDS:There are small mucous retention cysts in the maxillary sinuses. NEWTOK OF LYLE: Normal flow void. PITUITARY GLAND: Unremarkable. OTHER FINDINGS: None. IMPRESSION: 1. There is no acute intracranial process. 2. Findings suggestive of chronic microvascular ischemic disease. DATA REPOSITORY:
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
== END 2025-05-17 02:17 ==
LOC: DI 01:57
PROVIDERS: PCP Family Medicine; Visit Provider Family Medicine
DX: M21.371 Foot drop, right foot (principal); M51.362 Other intervertebral disc degeneration, lumbar region with discogenic back pain and lower extremity pain
CPT/HCPCS: 70551; 72148